=== PATIENT | female | born 1970 | race African-American/Black ===

== ENCOUNTER 2017-03-04 19:57 | Emergency (ER) | payer MEDICARE, OTHER ==
[~2017-03-04] VITALS: Ht 177.8 cm; Wt 89.8 kg
[~2017-03-04 19:57] MED LIST: BENADRYL25 MG PO; KENALOG 0.1% CR15 GM APPLIC; MEDROL DOSEPAK4 MG ORAL; NKM; PREDNISONE20 MG ORAL
[2017-03-04] MEDS ORDERED: KEFLEX500 MG ORAL (20:56)
[2017-03-04] MEDS ORDERED: KENALOG 0.5% CR15 GM APPLIC (20:56)
[2017-03-04 21:01] VITALS: BP 163/75
--- NOTE | 2017-03-05 21:30 | Emergency Room Report ---
History of Present Illness General Chief Complaint: Skin Rash/Abscess Source: Patient Present Illness HPI 46-year-old female presents ED complaining of rash to her feet. Has been there for several weeks. Has tried multiple [id number] creams and Benadryl without relief. Patient denies any pain. Denies any known food or drug allergies. States that she wears shoes all day at work and sometimes the shoes are tight fitting. No other aggravating or relieving factors. Denies any other associated symptom Allergies: Coded Allergies: No Known Allergies (Verified , 03/04/17) Patient History Past Medical History: other - crohns Past Surgical History: none Pertinent Family History: none Social History: Denies: alcohol use, drug use, smoking Last Menstrual Period: january 2016 Now: No Immunizations: UTD Reviewed Nursing Documentation: PMH: Agreed, PSxH: Agreed Nursing Documentation-PMH Past Medical History: No History, Except For Hx Gastrointestinal Problems: Yes - Crohn's disease Review of Systems All Other Systems: negative except mentioned in HPI Physical Exam Vital Signs Date Time Temp Pulse Resp B/P Pulse Ox O2 Delivery O2 Flow Rate FiO2 03/04/17 20:17 98.2 71 16 165/104 97 Room Air Sp02 EP Interpretation: reviewed, normal General Appearance: no apparent distress, alert, GCS 15, non-toxic Head: normocephalic, atraumatic Eyes: bilateral eye PERRL, bilateral eye normal inspection ENT: hearing grossly normal, normal pharynx, no angioedema, normal voice Neck: full range of motion, supple/symm/no masses Respiratory: chest non-tender, lungs clear, normal breath sounds, speaking full sentences Cardiovascular #1: regular rate, rhythm, no edema Cardiovascular #2: 2+ carotid (R), 2+ carotid (L), 2+ radial (R), 2+ radial (L) , 2+ dorsalis pedis (R), 2+ dorsalis pedis (L) Gastrointestinal: normal bowel sounds, non tender, soft, non-distended, no guarding, no rebound Rectal: deferred Genitourinary: normal inspection, no CVA tenderness Musculoskeletal: back normal, gait/station normal, normal range of motion, non- tender, calf tenderness Neurologic: alert, oriented x3, responsive, motor strength/tone normal, sensory intact, speech normal Psychiatric: judgement/insight normal, memory normal, mood/affect normal, no suicidal/homicidal ideation Reflexes: 3+ bicep (R), 3+ bicep (L), 3+ tricep (R), 3+ tricep (L), 3+ knee (R) , 3+ knee (L) Skin: rash - ezcematous rash discolored noted to dorsal aspect both feet Lymphatic: no adenopathy Medical Decision Making Diagnostic Impression: Primary Impression: Contact dermatitis Qualified Codes: L24.9 - Irritant contact dermatitis, unspecified cause ER Course Hospital Course 46-year-old female presents to ED with rash to feet Differential diagnoses include: Cellulitis, dermatitis, insect bite, abscess Clinical course Patient placed on stretcher. After initial history, physical exam reveals a middle aged female in no acute distress. On exam there is a eczematous type or rash noted to the dorsal aspect of both feet. Similar distribution. Appears like a contact dermatitis likely from the tight fitting shoes. There is some erythema noted Diagnosis - contact dermatitis stable and discharged to home with prescription for triamcinolone, keflex. Instructed to followup with PMD. Instructed return to ED if symptoms recur or worsen Last Vital Signs Date Time Temp Pulse Resp B/P Pulse Ox O2 Delivery O2 Flow Rate FiO2 03/04/17 21:01 98.1 75 14 163/75 99 Room Air Status: improved Disposition: HOME, SELF-CARE Condition: Stable Scripts Cephalexin* (KEFLEX*) 500 Mg Capsule 500 MG ORAL Q6H, #28 CAP 0 Refills Prov: SARAY JURADO M.D. 03/04/17 Triamcinolone Acet (Triamcinolone Acetonide) 15 Gm Cream..g. 15 GM APPLIC BID, #15 GM Prov: SARAY JURADO M.D. 03/04/17 Patient Instructions: Contact Dermatitis, [id number] SARAY JURADO M.D. Mar 05, 2017 21:30
== END 2017-03-04 21:01 | disposition home or self-care (01) ==
LOC: EMR 20:41
DX: L25.9 Unspecified contact dermatitis, unspecified cause (principal); Z87.19 Personal history of other diseases of the digestive system
CPT/HCPCS: 99284